=== PATIENT | female | born 1955 | race Caucasian/White ===

== ENCOUNTER → 2017-05-21 | Outpatient (CLI) | payer MEDICARE, OTHER ==
[~2017-05-21] MED LIST: ASPIR 8181 MG PO; ENOXAPARIN40 MG/0.1 SUBQ; GLIPIZIDE 10 MG10 MG PO; LISINOPRIL10 MG PO; OXYCODONE HCL 55 MG PO; SIMVASTATIN40 MG PO; SYNTHROID88 MCG PO
== END ==
LOC: M.CT 12:00 → EDBD 12:08
DX: R89.9 Unspecified abnormal finding in specimens from other organs, systems and tissues (principal); R06.02 Shortness of breath

== ENCOUNTER → 2017-06-08 | Outpatient (CLI) | payer MEDICARE, OTHER ==
--- NOTE | 2017-06-21 10:26 | CON ---
[address] [address] CONSULTATION Name: ANDREE FORD Room: [facility] M.R.#: [id number] Admission: 06/08/17 Attend Phys: Jhony Cates MD Discharge: Date of : 53 Report #: [id number] THIS REPORT FOR: //name// CC: Jhony Galvez Date of Visit: June 08, 2017 [facility] REFERRING PHYSICIANS: Include Jin Cordoba MD; DO Yamilet Sainz FNP, primary health manager wound care. PRIMARY SITE AND HISTOPATHOLOGY: The patient has a recurrent endometrial cancer involving the anterior abdominal wall. HISTORY OF PRESENT ILLNESS: The patient is a 62-year-old woman who was treated in 2008 for an endometrial cancer. She, at that time, started developing spotting and she presented to Dr. Sim and he performed an endometrial biopsy. The spotting occurred around 10/2008. She had a biopsy on 11/30/2008. The pathology revealed a high-grade endometrial adenocarcinoma that was grade 3 with squamous differentiation. The patient was then referred to Dr. Dupree. She underwent an abdominal pelvic CT and a chest CT on 12/20/2008. The abdominal and pelvic CT revealed no intra-abdominal metastatic disease. The endometrial cavity was thickened. There was no evidence of parametrial lymphadenopathy. The chest CT showed no mediastinal lymphadenopathy or pulmonary nodules. The patient underwent a total abdominal hysterectomy, bilateral salpingo-oophorectomy with lymph node sampling and a partial omentectomy that was performed on 01/02/2009. The pathology revealed an endometrioid adenocarcinoma that was grade 3/3 with invasion of 0.8 cm of 1.9 cm myometrium, so there was about 41% myometrial invasion. She went on to receive radiation therapy to the pelvic area between 03/13/2009 and 05/09/2009. She did well until about 02/2017 when she noted an abdominal wall mass. She had an ultrasound done, which showed a lobulated mass at the umbilical area, deep in the abdominal wall and it measured about 3.8 cm x 4.2 cm x 8.4 cm. She was then seen by the surgeon, Dr. Smith. He did an excision of this mass on 04/15/2017 and the pathology revealed a high-grade adenocarcinoma typical of endometrial cancer, extensively involving the inked surgical margins. So she was referred for consideration for possible adjuvant radiation therapy. She also had a PET scan on 05/15/2017 which revealed a hypermetabolic soft tissue density in the lower anterior abdominal wall that measured about 4.2 cm x 3 cm, with an SUV of 11.2 and there was no other hypermetabolic adenopathy to suggest other areas of disease. So, she presents for consideration [place] [address] CONSULTATION Name: ANDREE FORD OCTOBER Room: [facility]#: [id number] Admission: 06/08/17 Attend Phys: Jhony Cates MD Discharge: Date of : 53 Report #: [id number] PAST MEDICAL HISTORY AND PAST SURGICAL HISTORY: The patient has diabetes. MEDICATIONS: Glipizide, 88 mcg of levothyroxine per day. She is also taking simvastatin and lisinopril. ALLERGIES: The patient has no known drug allergies. FAMILY HISTORY: Sister had uterine cancer. SOCIAL HISTORY: The patient is unemployed. She is . Ethanol: She does not drink alcohol containing drinks. Cigarettes: She does not smoke. REVIEW OF SYSTEMS: GENERAL: She denied having any fevers or chills. SKIN: She denied having color changes or itching. LYMPH NODES: She denied having enlarged or painful glands. ENDOCRINE: She denied having any hot or cold intolerance. HEMATOLOGY, IMMUNOLOGY: She denied having any anemia or recent bleeding. MUSCULOSKELETAL: She denied having any arthritis or painful swollen joints. HEAD AND NECK: She denied having any headaches or migraines. RESPIRATORY: She had a nonproductive cough about a couple of months ago and recently finished a course of azithromycin. CARDIOVASCULAR: She denied having any palpitations. GASTROINTESTINAL: She denied having any nausea. NEUROLOGIC: She denied having any focal weakness. PHYSICAL EXAMINATION: With my nurse, Jeimy Powell, present; VITAL SIGNS: Height 4 feet 9 inches, weight 214 pounds, blood pressure 146/81, pulse 73, respirations 22. LYMPH NODES: She had no palpable cervical or supraclavicular lymphadenopathy or inguinal lymphadenopathy. GENERAL/PSYCHIATRIC: She was alert, oriented, and in no acute distress. EYES: Pupils were equal, round, reactive to light and accommodation. Extraocular movements were intact. HEAD, EARS, NOSE AND THROAT: Mouth had no suspicious visible lesions. HEART: Had a regular rate and rhythm without murmur. LUNGS: were clear to auscultation. ABDOMEN: Not tender. Spleen was not palpable. Liver was at the costal margin. She had a well-healed surgical scar in the lower abdominal area that measured about 7 cm x 1 cm. NEUROLOGIC: Cranial nerves II-XII were intact. Sensation was intact. She had 4/5 strength in her extremities. ASSESSMENT AND PLAN: The patient is a 62-year-old woman with a recurrent endometrial cancer involving the anterior abdominal wall. It appears she can receive additional radiation therapy to that area, after I looked at her previous radiation therapy records. There will be some overlap with her previous treatment field. So the risks, benefits, and logistics of radiation therapy were explained to the patient in detail; [place] [address] CONSULTATION Name: ANDREE FORD OCTOBER Room: [facility].#: [id number] Admission: 06/08/17 Attend Phys: Jhony Cates MD Discharge: Date of : 53 Report #: [id number] present radiation therapy overlapping with her previous radiation therapy, which can put her at increased risk for late side effects. She gave her witnessed, informed consent to proceed with radiation therapy and she will be scheduled for simulation for radiation therapy. <ELECTRONICALLY SIGNED> By: Jhony Cates MD 06/21/17 1026 [id number] Cates MD /nt
== END ==
LOC: M.RTH 07:58 → EDBD 07:58 → M.RTH 15:00
DX: C54.1 Malignant neoplasm of endometrium (principal); E11.9 Type 2 diabetes mellitus without complications

== ENCOUNTER → 2017-08-07 | Outpatient (CLI) | payer MEDICARE, OTHER ==
--- NOTE | 2017-08-16 23:38 | ONC ---
[place] [address] RADIATION ONCOLOGY NOTE Name: ANDREE FORD Room: [facility]..#: [id number] Admission: 08/07/17 Attend Phys: Jhony Cates MD Discharge: Date of : [birth year] Report #: [id number] THIS REPORT FOR: //name// CC: Jhony Brooks MD DATE OF SERVICE: 08/07/2017 REFERRING PHYSICIANS: Include Yamilet Bazan, family nurse practitioner; Ben Smith DO; Jin Cordoba MD; and Dr. Khushi Potter. PRIMARY SITE AND HISTOPATHOLOGY: The patient had a recurrent endometrial carcinoma that was involving the anterior abdominal wall. The surgeon, Dr. Smith, performed an excision of the mass on 04/15/2017. She received postoperative radiation therapy to that area that was completed on 07/16/2017. INTERVAL NOTE: She still has some mild dry desquamation and hyperpigmentation of the skin along the abdominal wall. She is eating well. She eats food such as eggs and cereal. She usually has about 2-3 bowel movements a day. MEDICATIONS: Aspirin, glipizide extended release, 88 mcg of levothyroxine, 40 mg of simvastatin and 10 mg of lisinopril. SOCIAL HISTORY: Cigarettes, she does not smoke cigarettes. REVIEW OF SYSTEMS: GASTROINTESTINAL: She has a good appetite and has noted she has about 2-3 bowel movements per day. RESPIRATORY: She was not short of breath. PHYSICAL EXAMINATION: VITAL SIGNS: Weight was 217.2 pounds on 08/07/2017 and 214 pounds on 06/08/2017. On 08/07/2017 blood pressure was 175/80, pulse 58, respirations 20. LYMPH NODES: She had no cervical, supraclavicular lymphadenopathy. HEART: Had a regular rate and rhythm without murmur. LUNGS: were clear to auscultation. ABDOMEN: She had some hyperpigmentation of the skin on the anterior abdominal wall where she underwent treatment. There was some fibrosis in that area that measured 5 cm x 4 cm. She has positive bowel sounds. Abdomen is not tender. LABORATORY DATA: Sodium 137, potassium 4.4, BUN 19, creatinine 1[place]36[place] [address] RADIATION ONCOLOGY NOTE Name: ANDREE FORD OCTOBER Room: [facility]#: [id number] Admission: 08/07/17 Attend Phys: Jhony Cates MD Discharge: Date of : [birth year] Report #: [id number] creatinine was 1.24 on 06/11/2017. White blood cell count 9.1; hemoglobin 13.9; platelets 266,000. ASSESSMENT AND PLAN: 1. History of recurrent endometrial cancer. There is no evidence of cancer at this time. A Requisition will be made for a basic metabolic panel around 08/2017 and abdominal and pelvic CT without intravenous contrast around 09/2017. She was asked to schedule a followup appointment to see me afterwards. She has an appointment with her medical oncologist, Dr. Cordoba, on 02/11/2018. 2. Skin reaction- The patient was given a prescription for Silvadene to use for her skin reaction. 3. Hypertension- The patient takes lisinopril and that is managed by referring physicians. 4. Hyperlipidemia- The patient takes simvastatin and that is managed by referring physicians. 5. Hypothyroidism- The patient takes levothyroxine and that is managed by referring physicians. 6. Diabetes- The patient takes glipizide and that is managed by her referring physicians. Thank you for allowing me to participate in the care of this patient. <ELECTRONICALLY SIGNED> By: Jhony Cates MD 08/16/17 2338 1102 [id number] Cates MD /nt
== END ==
LOC: M.RTH 01:37 → EDBD 01:37 → M.RTH 10:15
DX: I10 Essential (primary) hypertension (principal); E78.5 Hyperlipidemia, unspecified; E03.9 Hypothyroidism, unspecified; E11.9 Type 2 diabetes mellitus without complications

== ENCOUNTER → 2017-09-30 | Outpatient (CLI) | payer MEDICARE, OTHER ==
[2017-09-30 11:33] LABS: CALCIUM 9.4 mg/dL (8.5-10.1); CREATININE 1.3 mg/dL (0.6-1.3); POTASSIUM 4.1 mmol/L (3.5-5.1)
== END ==
LOC: M.LAB 09-29 10:30 → M.CT 09-29 11:30 → EDBD 10:13 → M.LAB 10:13
PROVIDERS: Radiology Radiation Oncology
DX: K80.20 Calculus of gallbladder without cholecystitis without obstruction (principal); K76.89 Other specified diseases of liver; Z98.890 Other specified postprocedural states; Z85.42 Personal history of malignant neoplasm of other parts of uterus

== ENCOUNTER → 2017-09-30 | Outpatient (CLI) | payer MEDICARE, OTHER ==
--- NOTE | 2017-10-12 18:32 | ONC ---
[address] [address] RADIATION ONCOLOGY NOTE Name: ANDREE FORD Room: [facility] M.R.#: [id number] Admission: 09/30/17 Attend Phys: Jhony Cates MD Discharge: Date of : 53 Report #: [id number] THIS REPORT FOR: //name// CC: Jhony Cordoba MD DATE OF SERVICE: 09/30/2017 [facility] REFERRING PHYSICIANS: Include Yamilet Bazan, nurse practitioner and also Jin Cordoba MD. PRIMARY SITE AND HISTOPATHOLOGY: The patient had a recurrent endometrial cancer that was involving the anterior abdominal wall. The surgeon, Dr. Smith, performed an excision of the mass on 04/15/2017. She received postoperative radiation therapy to that area that was completed on 07/16/2017. INTERVAL NOTE: The patient placed moisturizing cream to that area on the abdomen that was treated and otherwise she is eating a regular diet. She has a good appetite and she has about 2 bowel movements a day. MEDICATIONS: Aspirin, glipizide extended release, 88 mcg of levothyroxine, 40 mg of simvastatin, and 10 mg of lisinopril. SOCIAL HISTORY: Cigarettes: The patient does not smoke cigarettes. REVIEW OF SYSTEMS: GASTROINTESTINAL: She has about 2 bowel movements a day. RESPIRATORY: She was not short of breath. PHYSICAL EXAMINATION: VITAL SIGNS: The patient weighed 217 pounds on 09/30/2017, she was 217.2 pounds on 08/07/2017. On 09/30/2017, blood pressure was 148/90, pulse 61, respirations 22, oxygen saturation 95%. LYMPH NODES: She had no cervical or supraclavicular lymphadenopathy. HEART: Had a regular rate and rhythm without murmur. LUNGS: were clear to auscultation. ABDOMEN: She still has a little bit of hyperpigmentation on the skin on the anterior abdominal wall. Fibrosis has decreased. It was about 5 cm. x 4 cm on 08/07/2017, now it is about 1.5 cm. x 1.5 cm. ASSESSMENT AND PLAN: [place] [address] RADIATION ONCOLOGY NOTE Name: ANDREE FORD OCTOBER [id number] Admission: 09/30/17 Attend Phys: Jhony Cates MD Discharge: Date of : 53 Report #: [id number] 1. History of recurrent endometrial cancer- The patient has no evidence of cancer at this time. She did not have her lab work and CT scan done prior to her appointment, so she was sent over today to have that completed and then she has an appointment with her medical oncologist, Dr. Cordoba, on 02/11/2018. 2. Hypertension- The patient takes lisinopril and that is managed by her referring physicians. 3. Hyperlipidemia- The patient takes simvastatin and that is managed by her referring physicians. 4. Hypothyroidism- The patient is taking levothyroxine and that is managed by referring physicians. 5. Diabetes- The patient takes glipizide and that is managed by her referring physicians. Thank you for allowing me to participate in the care of this patient. <ELECTRONICALLY SIGNED> By: Jhony Cates MD 10/12/17 1832 1048 [id number] Cates MD /nt
== END ==
LOC: M.RTH 03:30 → EDBD 03:30 → M.RTH 09:30
DX: C54.1 Malignant neoplasm of endometrium (principal); I10 Essential (primary) hypertension; E11.9 Type 2 diabetes mellitus without complications; E78.5 Hyperlipidemia, unspecified; E03.9 Hypothyroidism, unspecified

== ENCOUNTER → 2018-01-07 | Outpatient (CLI) | payer MEDICARE, OTHER | LOC: M.RAD 15:01 | DX: N91.2 Amenorrhea, unspecified (principal); E03.9 Hypothyroidism, unspecified; E11.9 Type 2 diabetes mellitus without complications; Z78.0 Asymptomatic menopausal state ==

== ENCOUNTER → 2018-04-29 | Outpatient (CLI) | payer MEDICARE, OTHER | LOC: M.ULTRA 04-27 12:01 | DX: Z12.31 Encounter for screening mammogram for malignant neoplasm of breast (principal); K80.20 Calculus of gallbladder without cholecystitis without obstruction; K76.0 Fatty (change of) liver, not elsewhere classified; R60.0 Localized edema; Z85.42 Personal history of malignant neoplasm of other parts of uterus ==

== ENCOUNTER → 2018-07-23 | Outpatient (CLI) | payer MEDICARE, OTHER ==
[2018-07-23 11:17] LABS: ABSOLUTE BASOPHILS 0.1 thou/uL (0.0-0.2); ABSOLUTE EOSINOPHILS 0.4 thou/uL (0.0-0.7); ABSOLUTE LYMPHOCYTES 1.6 thou/uL (0.8-5.3); ABSOLUTE MONOCYTES 0.7 thou/uL (0.0-1.2); ABSOLUTE NEUTROPHILS 6.6 thou/uL (1.6-8.1); BASOPHILS 0.6 %; EOSINOPHILS 4.4 %; HEMATOCRIT 42.2 % (37.0-47.0); HEMOGLOBIN 14.1 gm/dL (12.0-15.0); MCH 32.4 pg (26.0-34.0); MCHC 33.4 g/dL (28.0-37.0); MCV 96.9 fL (80.0-100.0); MONOCYTES 7.8 %; MPV 7.9 fl. (7.2-11.1); NUCLEATED RBCS 0 /100WBC; PLATELET COUNT* 266 thou/uL (150-400); POLYS 70.2 %; RBC 4.35 mil/uL (4.20-5.00); RDW-CV 13.4 % (10.5-14.5); WBC 9.5 thou/uL (4.0-11.0)
[2018-07-23 11:32] LABS: ALBUMIN 3.9 g/dL (3.4-5.0); ALKALINE PHOSPHATASE 79 U/L (46-116); ANION GAP 7 mmol/L (7-16); BUN 21 mg/dL (7-18); CHLORIDE 100 mmol/L (98-107); CHOLESTEROL 159 mg/dL (<200); CO2 28 mmol/L (21-32); CREATININE 1.2 mg/dL (0.6-1.3); GLUCOSE 226 mg/dL (70-99); HDL CHOLESTEROL 39 mg/dL (>40); LDL CHOLESTEROL 74 mg/dL (<100); POTASSIUM 4.4 mmol/L (3.5-5.1); SGOT 24 U/L (15-37); SGPT 25 U/L (30-65); SODIUM 135 mmol/L (136-145); TC:HDL 4.1 Ratio (Not establshd); TOTAL BILIRUBIN 0.4 mg/dL (<0.1-1.0); TOTAL PROTEIN 8.2 g/dL (6.4-8.2); TRIGLYCERIDE 233 mg/dL (<150); VLDL 47 mg/dL (<40)
[2018-07-23 11:36] LABS: SERUM ASSESSMENT Clear
[2018-07-24 02:10] LABS: GLYCOHEMOGLOBIN (HGB A1C) 8.3 % (4.8-5.6)
== END ==
LOC: M.CT 09:00
PROVIDERS: Nurse Practitioner Family
DX: K80.20 Calculus of gallbladder without cholecystitis without obstruction (principal); K76.89 Other specified diseases of liver; J47.9 Bronchiectasis, uncomplicated; J84.10 Pulmonary fibrosis, unspecified

== ENCOUNTER → 2018-09-03 | Outpatient (CLI) | payer MEDICARE, OTHER ==
[~2018-09-03] MED LIST changes: +COZAAR 25 MG TA25 M1 PO; +IBUPROFEN 800800 M1 PO
--- NOTE | ~2018-09-03 | CON ---
[address] [address] CONSULTATION Name: ANDREE FORD Room: [facility] M.R.#: [id number] Admission: 09/03/18 Attend Phys: Jhony Cates MD Discharge: Date of : 53 Report #: [id number] THIS REPORT FOR: //name// CC: Jhony Potter DATE OF SERVICE: 09/03/2018 REFERRING PHYSICIANS: Jin Cordoba MD and Jessica Carrasco MD [facility] phone is [phone]. PRIMARY SITE AND HISTOPATHOLOGY: The patient has a recurrent endometrial cancer with oligometastasis in the anterior abdominal wall HISTORY OF PRESENT ILLNESS: The patient was originally diagnosed with endometrial cancer in 2008. At that time, she was having vaginal spotting and percent to Dr. Burk who performed an endometrial biopsy. Spotting starting around 10/2008, she had an endometrial biopsy on 11/30/2008. The pathology revealed a high grade endometrial adenocarcinoma, that was grade 3. The patient underwent a total abdominal hysterectomy, bilateral salpingo-oophorectomy with lymph node sampling, partial omentectomy on 01/02/[address] Dupree. The pathology revealed an endometrioid adenocarcinoma, which was grade 3/3 with invasion of 0.8 cm out of 1.9 cm myometrium, there was a 41% myometrial invasion. She did not receive radiation therapy to the pelvis from 03/13/2009 to 05/09/2009. She did well until about 02/2017 when she noted that an abdominal wall mass on ultrasound at that time revealed a lobulated mass around the umbilical area that measured about 3.8 x 4.2 x 8.4 cm. She was then seen by her surgeon, Dr. Smith, he excised the mass on 04/15/2017. The pathology revealed a high grade adenocarcinoma typical of endometrial cancer extensively involving the surgical margins. She went on to receive radiation therapy to that area from 06/18/2017-07/16/2017. She received a total of 4500 cGy in 250 cGy daily fractions and the field was reduced after 1500 centigrade to try to keep the bowel within tolerance. The patient has a persistent mass in the same area. She had a CT scan on 02/25/2018 and that did not reveal significant change in the anterior abdominal wall mass. It was consistent with metastatic disease and it measured 2.9 x 4.7 cm compared to 3 x 4.2 cm previously. Then the patient had a biopsy of this mass on 08/18/2018 and that revealed a high-grade adenocarcinoma consistent with a prior history of metastatic endometrial cancer. The patient saw her medical oncologist, Dr. Cordoba on 08/27/2018 and the patient was not interested in chemotherapy. It is not clear she would be a good candidate for surgery. The patient was referred back to me to consider additional radiation therapy to this area. PAST MEDICAL HISTORY AND PAST SURGICAL HISTORY: [place] [address] CONSULTATION Name: ANDREE FORD OCTOBER Room: [facility]#: [id number] Admission: 09/03/18 Attend Phys: Jhony Cates MD Discharge: Date of : 53 Report #: [id number] MEDICATIONS: Simvastatin, lisinopril, glipizide and aspirin. ALLERGIES: She has no known drug allergies. OBSTETRICS/GYNECOLOGY: Menarche at age 11, last menstrual period was prior to her hysterectomy. She is 1, para 1. FAMILY HISTORY: Sister had uterine cancer. SOCIAL HISTORY: Ethanol, she does not drink. Cigarettes, she does not smoke. REVIEW OF SYSTEMS: GENERAL: The patient denied having any fevers or chills. SKIN: The patient denied color changes or itching. LYMPH NODES: The patient denied enlarged or painful glands in the neck. ENDOCRINE: She denied having any hot or cold intolerance. HEMATOLOGY/IMMUNOLOGY: The patient denied having any recent bleeding. MUSCULOSKELETAL: She denied having any arthritis. HEAD AND NECK: She denied having any headaches. RESPIRATORY: If she exerts herself significantly she can get shortness of breath. CARDIOVASCULAR: She denied having palpitations. GASTROINTESTINAL: Denies any nausea. RECTAL: Denied having any focal weakness. PHYSICAL EXAMINATION: With my nurse, Jeimy Powell, present: VITAL SIGNS: Height 4 feet 9 inches, weight 224 pounds, blood pressure 155/79, pulse 72, respirations 20, oxygen saturation 90%. LYMPH NODES: No cervical, supraclavicular lymphadenopathy. HEART: Had a regular rate and rhythm without murmur. LUNGS: Clear to auscultation. ABDOMEN: The patient had a palpable mass inferior to the umbilicus in the anterior abdominal wall that measured approximately about 4.5 x 3 cm. NEUROLOGIC: Cranial nerves 2-12 are intact. Sensation intact. The patient has about 4/5 strength throughout. LABORATORY DATA: From 08/05/2017, hemoglobin 13.9, platelets are 162,000, white blood cell count was 9.1. Sodium was 137, potassium 4.4, BUN 19, creatinine 1.36. RADIOLOGIC DATA: The patient had an abdominal pelvic CT scan showed an anterior abdominal wall mass consistent with metastatic site measuring about 2.9 x 4.7 cm. There is no abdominal pelvic lymphadenopathy. ASSESSMENT AND PLAN: The patient has findings consistent with an oligometastasis anterior abdominal wall from [place] [address] CONSULTATION Name: ANDREE FORD OCTOBER Room: [facility] M.R.#: [id number] Admission: 09/03/18 Attend Phys: Jhony Cates MD Discharge: Date of : 53 Report #: [id number] After reviewing her previous treatments when she was initially treated to the pelvis in the postoperative manner in 2008 she probably received about a 5237-5131 cGy to the anterior abdominal wall. Then, when she was treated in 2018 postoperatively, she received about 4500 cGy and 10:50 cGy fractions, so that area, probably got a cumulative dose from these 2 treatments to about 7000 and 8000 cGy around that area of the mass. So I told her the options are continued observation versus surgical resection versus additional radiation therapy versus systemic therapy. I suggested a referral to surgeon possibly Gynecological Oncology service to assess this area before additional radiation is given to see if they would consider resection may be a reasonable option at this point and then we would see her after her surgical evaluation. The patient ultimately was agreeable to this, so a referral will be made probably for her to see a gynecological oncologist, Dr. Castillo one of our colleagues and then follow up with me afterwards to help finalize this treatment plan. Thank you very much for this consultation. By: [id number] mateo Prakash
== END ==
LOC: M.RTH 04:37
DX: C44.509 Unspecified malignant neoplasm of skin of other part of trunk (principal); E11.9 Type 2 diabetes mellitus without complications; Z79.899 Other long term (current) drug therapy; Z80.49 Family history of malignant neoplasm of other genital organs

== ENCOUNTER 2018-12-08 18:01 | Emergency (ER) | payer MEDICARE, OTHER ==
[~2018-12-08] VITALS: Ht 160 cm; Wt 103.1 kg
[2018-12-08 18:21] LABS: HEMATOCRIT 33.1 % (37.0-47.0); HEMOGLOBIN 10.5 gm/dL (12.0-15.0); MCH 32.6 pg (26.0-34.0); MCHC 31.9 g/dL (28.0-37.0); MCV 102.2 fL (80.0-100.0); MPV 8.3 fl. (7.2-11.1); NUCLEATED RBCS 0 /100WBC; PLATELET COUNT* 412 thou/uL (150-400); RBC 3.24 mil/uL (4.20-5.00); RDW-CV 14.8 % (10.5-14.5); WBC 16.1 thou/uL (4.0-11.0)
[2018-12-08 18:27] LABS: PCO2 63.6 mmHg (35.0-45.0); PO2 348.7 mmHg (75.0-100.0); pH 7.018 (7.340-7.450)
[2018-12-08 18:27] LABS: ANION GAP 14 mmol/L (7-16); BUN 56 mg/dL (7-18); CALCIUM 9.8 mg/dL (8.5-10.1); CHLORIDE 96 mmol/L (98-107); CO2 23 mmol/L (21-32); CREATININE 2.8 mg/dL (0.6-1.3); GLUCOSE 346 mg/dL (70-99); POTASSIUM 3.8 mmol/L (3.5-5.1); SODIUM 133 mmol/L (136-145)
[2018-12-08 18:35] LABS: ABSOLUTE EOSINOPHILS 1.3 thou/uL (0.0-0.7); ABSOLUTE LYMPHOCYTES 1.4 thou/uL (0.8-5.3); ABSOLUTE MONOCYTES 0.6 thou/uL (0.0-1.2); ABSOLUTE NEUTROPHILS 12.7 thou/uL (1.6-8.1)
[2018-12-08 18:36] LABS: INR 1.1; PLATELET ESTIMATE ADEQUATE; PROTIME 10.9 Seconds (9.20-11.50)
[2018-12-08 18:40] LABS: ALBUMIN 3.5 g/dL (3.4-5.0); ALKALINE PHOSPHATASE 65 U/L (46-116); LIPASE 366 U/L (73-393); NT-PRO BRAIN NAT PEPTIDE 161 pg/mL (<300); SGOT 26 U/L (15-37); SGPT 29 U/L (30-65); TOTAL BILIRUBIN 0.3 mg/dL (<0.1-1.0); TOTAL PROTEIN 7.7 g/dL (6.4-8.2); TROPONIN-I LEVEL <0.06 ng/mL (<0.06)
[2018-12-08 20:10] VITALS: BP 100/61
== END 2018-12-08 20:35 | disposition short-term general hospital (02) ==
LOC: M.ERS 18:01
PROVIDERS: Emergency Medicine
DX: R56.9 Unspecified convulsions (principal); E78.5 Hyperlipidemia, unspecified; I10 Essential (primary) hypertension; E11.9 Type 2 diabetes mellitus without complications; Z90.710 Acquired absence of both cervix and uterus; Z88.0 Allergy status to penicillin